=== PATIENT | male | born 1980 | race Caucasian/White ===

== ENCOUNTER 2024-08-06 19:55 | Emergency (ER) | payer OTHER ==
[~2024-08-06] VITALS: Ht 160 cm; Wt 70.3 kg
[~2024-08-06 19:55] MED LIST: ACET-2605 PO; ACET-868 PO; AMLO10TA4 PO; ASCO500T87 PO; ASPI-495 PO; BISA10SU61 RC; DOCU-141 PO; HYDR-4384 PO; ISOS30TA PO; MAGN24002 PO; MULT1TAB11 PO; PANT40TA2 PO; PARI1CAP3 PO; SIMV5TAB2 PO; ZINC220T4 PO
[2024-08-06 20:14] VITALS: BP 122/78; TEMP 98.2; O2SAT 98
[2024-08-06] MEDS ORDERED: IBUPROFEN 600 MG TABLET ONE (21:01)
[2024-08-06] MEDS: IBUPROFEN 600 MG TABLET PO ONE (21:04)
== END 2024-08-06 22:07 | disposition home or self-care (01) ==
LOC: ER 19:59
DX: S92.211A Displaced fracture of cuboid bone of right foot, initial encounter for closed fracture (principal); Z79.82 Long term (current) use of aspirin; Z79.899 Other long term (current) drug therapy; Z88.5 Allergy status to narcotic agent; X50.1XXA Overexertion from prolonged static or awkward postures, initial encounter; Y93.89 Activity, other specified; Y92.89 Other specified places as the place of occurrence of the external cause; Y99.8 Other external cause status
CPT/HCPCS: 73610-TC; 73630-TC